=== PATIENT | male | born 1980 | race Caucasian/White ===

== ENCOUNTER 2022-06-14 08:09 | Emergency (ER) | payer OTHER ==
[~2022-06-14] VITALS: Ht 193 cm; Wt 120.2 kg
[2022-06-14] MEDS ORDERED: AMOCLA875 PO (08:32)
== END 2022-06-14 08:38 | disposition home or self-care (01) ==
LOC: ER 08:09
DX: K08.89 Other specified disorders of teeth and supporting structures (principal); F17.210 Nicotine dependence, cigarettes, uncomplicated
CPT/HCPCS: 99282